=== PATIENT | female | born 1940 | race Caucasian/White ===

== ENCOUNTER 2020-05-04 18:02 | Inpatient (IN) ==
--- NOTE | 2020-05-04 19:03 | XRay Report ---
CLINICAL INFORMATION: Preop COMPARISON: None. TECHNIQUE: Portable FINDINGS: The heart size, mediastinum and pulmonary vessels are unremarkable. The lungs are clear. There are no effusions. The bones and soft tissues are within normal limits. IMPRESSION: Normal chest. Interpreted and Authenticated by: Dieter Blunt 05/04/20
--- NOTE | 2020-05-04 19:24 | Emergency Department Note ---
Trauma HPI General Chief Complaint: Trauma Stated Complaint: left hip pain Time Seen by Provider: 05/04/20 18:26 Source: patient Mode of arrival: ambulatory Limitations: no limitations History of Present Illness HPI Narrative: Narrative: 79-year-old female comes in for left hip fracture. She was initially seen at [facility] [place], [place]. The doctor in emergency department there, Dr. Crenshaw, discussed the situation with Dr. Silver, the orthopedist on-call who agreed to accept the patient in consult down here. The patient arrives with records including x-ray on CD Apparently the cause of her fall was tripping over a telephone cord. She did not hit her head or neck and did not lose consciousness I am reviewing the case to make sure we have all of her preoperative stuff in order and coordinate care Patient notes that she has a history of DVT diagnosed out in [place] after her right hip surgery in 2007. She was initially placed on a anticoagulant but is now on a [id number] thrombolytic nattokinase-she did not take that this evening-last taken yesterday evening. She has not had any new pulmonary emboli nor DVT. She also has hypothyroidism and high blood pressure. Covid testing to date has been negative Related Data Home Medications Medication Instructions Recorded Confirmed Kidney Bladder Herb Blend 2 cap PO TID 05/04/20 Lacto 51-Bifid 3-L.lact-S.ther 1 cap PO DAILY 05/04/20 05/04/20 [Daily Probiotic (10 Strains)] Nattokinase 100 mg PO DAILY 05/04/20 carica papaya [Papaya Enzyme] 1 tab PO TID 05/04/20 05/04/20 fluorometholone 1 drp OPHTHALMIC (EYE) Q2H 05/04/20 05/04/20 levothyroxine 75 mcg PO QDAY 05/04/20 05/04/20 Allergies Allergy/AdvReac Type Severity Reaction Status Date / Time adhesive Allergy Verified 05/04/20 18:08 aminophylline Allergy Verified 05/04/20 18:08 Hydralazine Allergy Verified 05/04/20 18:08 tramadol Allergy Verified 05/04/20 18:08 Review of Systems ROS ROS Narrative: Narrative: All systems ED: reviewed and negative except as stated. PFSH Narrative Patient History Narrative: Narrative: Medical/Surgical/Family History All Active Problems (Updated 05/04/20 @ 19:29 by Delfin Childress MD) Femoral neck fracture (Acute) Chronic anticoagulation (Acute) Hypothyroidism (Acute) Medical History (Updated 05/04/20 @ 19:29 by Delfin Childress MD) History of DVT (deep vein thrombosis) (Acute) Surgical History (Updated 05/04/20 @ 19:01 by Delfin Childress MD) History of hip surgery (Acute) Family History (Updated 05/04/20 @ 19:20 by Delfin Childress MD) Mother Alzheimer's disease Hypertension Father CVA (cerebral vascular accident) Social History Smoking Status: Never smoker Exam Narrative Narrative: Narrative: No acute distress resting comfortably able answer questions appropriately. Normocephalic atraumatic. Conjunctive are clear sclerae white nonicteric. No nasal discharge or congestion. Oropharynx pink and moist. Neck is supple without lymphadenopathy or thyromegaly. Heart is regular rate and rhythm no murmur appreciated. Lungs are clear to auscultation bilaterally without wheezes rales rhonchi or respiratory distress. Abdomen is soft nontender nondistended. No peritoneal signs or guarding. Left hip is tender and she does not want to move it secondary to femoral fracture. No pedal edema. General Limitations: no limitations Course Vital Signs Vital signs: Vital Signs Temperature 97.0 F 05/04/20 18:03 Pulse Rate 72 05/04/20 18:03 Respiratory Rate 16 05/04/20 18:03 Blood Pressure 160/70 05/04/20 18:03 Pulse Oximetry (%) 95 05/04/20 18:03 Temperature 97.0 F 05/04/20 18:03 Pulse Rate 72 05/04/20 18:03 Respiratory Rate 16 05/04/20 18:03 Blood Pressure 160/70 05/04/20 18:03 Pulse Oximetry (%) 95 05/04/20 18:03 [facility] MDM Narrative Medical decision making narrative: Narrative: I discussed the case with Dr. Silver, orthopedist, who agreed to come in and see the patient. He advised me to get bleeding time if possible and further platelet in blood studies to make sure that we have a handle on the impact of the nattokinase. I also discussed case with Dr. Wilson, hospitalist who agreed to come see the patient and accept her for admission to the hospital in anticipation of surgery tomorrow morning. At this time the patient's blood pressure is 141/61 pulse of 70 oxygen is 95% on room air and she is afebrile Medical Records Medical records reviewed: Yes I reviewed the patient's medical records. Medical records narrative: Reviewed medical records from [facility]. CMP was unremarkable. Urinalysis showed moderate leukocytes with specific gravity 1.020 no bacteria. This was sent for culture. Comer was placed. CBC was normal without anemia or leukocytosis. Her medicine list shows mostly herbal supplements and includes L-arginine magnesium probiotic multivitamin and nattokinase as above Lab Data Lab results reviewed: Yes I reviewed the patient's lab results. Lab results narrative: Reviewed labs as above. Also ordered platelet function test INR and PTT because of the nattokinase Radiology Data Radiology results reviewed: Yes I reviewed the patient's radiology results. Radiology results narrative: Chest x-ray is unremarkable EKG Data EKG #1: EKG attestation: Yes I reviewed and interpreted this EKG. and Yes There are no EKG findings of acute coronary syndrome EKG results narrative: Concern for right bundle branch block versus interventricular conduction delay but otherwise sinus rhythm Discharge Plan Patient/Caregiver Discharge Instructions Pt seen by DEVELOPMENT ENGINEER/PA only: No Clinical Impression: Femoral neck fracture, Chronic anticoagulation Patient Disposition: Xfer As Inpt ([facility]) Condition: Fair Follow up with: Lynne Álvarez [Primary Care Provider] - Prescriptions: No Action fluorometholone 0.1 % Drops,Suspension 1 drp OPHTHALMIC (EYE) Q2H RF: 0 levothyroxine 75 mcg Capsule 75 mcg PO QDAY RF: 0 carica papaya [Papaya Enzyme] Tablet 1 tab PO TID RF: 0 Daily Probiotic (10 Strains) 4 billion cell Capsule 1 cap PO DAILY RF: 0 Kidney Bladder Herb Blend 2 cap PO TID RF: 0 Nattokinase 100 mg PO DAILY RF: 0
--- NOTE | 2020-05-04 19:31 | Internal Med History&Physical ---
HPI History of Present Illness Patient information: Note initiated : 05/04/20 at 7:31 pm Service Date, if different from initiated Date: [] Patient: Tami Bowles a 79 y/o F admitted on for left hip pain. Chief Complaint: Fall with left hip pain History of present illness: Ms. Bowles is a 79 year old F with a history of prior DVT/hypothyroidism who presents to the ER after she tripped on extension cord and fell sustaining injury to the left hip. She lives [place] [address] with her [place], she was in her baseline state of health. She denies losing consciousness. She was evaluated at [facility] ER with imaging consistent with left hip fracture. Orthopedic was consulted and requested transfer to [facility] for operative intervention. Initial work-up was essentially unremarkable with normal labs. Her blood pressure was around 180s during and received 1 dose of labetalol. At [facility] ER patient systolics range around 150. Hospital service was consulted for admission and to facilitate surgery in a.m. Case was discussed with orthopedics Dr. Alejandro Silver. Patient be kept n.p.o. after midnight At the time of my evaluation patient is alert and oriented. She was able to answer most of the question and endorse history as above. She denies lightheadedness or dizziness. Attributes to fall to accidentally tripping on extension cord. No recent hospitalization. No history of cardiac issues. No history of CVA Review of systems 10 point review system was performed and is negative except for ones discussed above PFSH PFSH All Active Problems (Updated 05/04/20 @ 19:29 by Delfin Childress MD) Femoral neck fracture (Acute) Chronic anticoagulation (Acute) Hypothyroidism (Acute) Medical History (Updated 05/04/20 @ 19:29 by Delfin Childress MD) History of DVT (deep vein thrombosis) (Acute) Surgical History (Updated 05/04/20 @ 19:01 by Delfin Cihldress MD) History of hip surgery (Acute) Family History (Updated 05/04/20 @ 19:20 by Delfin Childress MD) Mother Alzheimer's disease Hypertension Father CVA (cerebral vascular accident) Social History smoking status: Never smoker MEDS/ALLERGIES Home Medications and Allergies Home Medications Medication Instructions Recorded Confirmed Type Kidney Bladder Herb Blend 2 cap PO TID 05/04/20 05/04/20 History Lacto 51-Bifid 3-L.lact-S.ther 1 cap PO DAILY 05/04/20 05/04/20 History [Daily Probiotic (10 Strains)] Nattokinase 100 mg PO DAILY 05/04/20 05/04/20 History carboxymethylcellulose sodium 1 drp OPHTHALMIC (EYE) DAILY 05/04/20 05/04/20 History [Refresh Tears] carica papaya [Papaya Enzyme] 1 tab PO TID 05/04/20 05/04/20 History levothyroxine 75 mcg PO QDAY 05/04/20 05/04/20 History Allergies Allergy/AdvReac Type Severity Reaction Status Date / Time perfume Allergy Severe choking Verified 05/04/20 23:07 adhesive Allergy Verified 05/04/20 18:08 aminophylline Allergy Verified 05/04/20 18:08 Hydralazine Allergy Verified 05/04/20 18:08 tramadol Allergy Verified 05/04/20 18:08 EXAM Constitutional Vitals: Temp Pulse Resp BP Pulse Ox 97.0 F 70 16 141/61 95 05/04/20 18:03 05/04/20 19:01 05/04/20 18:03 05/04/20 19:01 05/04/20 19:01 Alert oriented minimal anxiety Head normocephalic Oral cavity moist No ear nose discharge Eye movement symmetrical Neck supple no lymphadenopathy S1-S2 occasionally irregular Nonlabored breathing Nondistended nontender abdomen Left hip shortened externally rotated, no cyanosis clubbing Skin no suspicious lesion Psych no hallucination Neuro normal higher function DATA Data Completed and Pending Labs: Labs from last 24 hours 05/04/20 19:00 POC PT Pending POC INR Pending A/P Narrative A/P Narrative: * Left hip fracture-she will undergo operative intervention in a.m. Currently on pain management/n.p.o. after midnight. * Preop risk evaluation-based on RCRI [place] [employer] risk stratification patient would be in the moderate to high risk category in light of her age however patient has a good functional baseline and does not have history of decompensated CHF/CVA/DC/IDDM or renal failure. There are no modifiable risk factors and she can proceed with surgery in a.m. Surgery and anesthesia specific risks will be addressed by individual care providers. * Hypothyroidism continue thyroxine * History of DVT-patient takes [id number] medication nattokinase. Last dose this morning. * Full code Plan * Inpatient admission * Pain management * Orthopedic intervention in a.m. * N.p.o. after midnight * Pre-existing medical condition management on home medications * DVT prophylaxis per orthopedics Time Spent With Patient Time: Total time spent is greater than 50% in coordination of care (as documented) at patient's floor/unit and/or counseling patient:
[2020-05-04 20:33] LABS: POC Pro Time 11.5 sec (11.9-14.5)
[2020-05-04 20:40] LABS: Partial Thromboplastin Time 20.4 sec (20.0-37.0)
[2020-05-04] MEDS ORDERED: MAGNESIUM SULFATE 2 GM/50 ML BAG IV PRN (21:39)
[2020-05-04] MEDS ORDERED: POTASSIUM CHLORIDE 20 MEQ PACKET PO PRN (21:39)
[2020-05-04] MEDS ORDERED: ONDANSETRON 4 MG ODT TABLET SL PRN (21:39)
[2020-05-04] MEDS ORDERED: POLYETHYLENE GLYCOL 3350 17 GM PACKET PO PRN (21:39)
[2020-05-04] MEDS ORDERED: ACETAMINOPHEN 650 MG/65 ML BAG IV PRN (21:39)
[2020-05-04] MEDS ORDERED: ONDANSETRON 4 MG/2 ML VIAL IV PRN (21:39)
[2020-05-04] MEDS ORDERED: HYDROmorphone 0.5 MG/0.5 ML SYRINGE IV PRN (21:39)
[2020-05-04] MEDS ORDERED: POTASSIUM CHLORIDE 40 MEQ in DEXTROSE 5% IN WATER 500 ML IV PRN (21:39)
[2020-05-04] MEDS ORDERED: BISACODYL 10 MG SUPP.RECT PR PRN (21:39)
[2020-05-04] MEDS ORDERED: ACETAMINOPHEN 325 MG TABLET PO PRN (21:39)
[2020-05-04] MEDS: 0.9 % SODIUM CHLORIDE 1,000 ML IV SCH (21:55)
[2020-05-04] MEDS: 0.9 % SODIUM CHLORIDE 10 ML SYRINGE IV SCH (21:56)
[2020-05-04] MEDS ORDERED: HYDROmorphone 0.5 MG/0.5 ML SYRINGE ONE (22:00)
[2020-05-04] MEDS: DOCUSATE SODIUM 100 MG CAPSULE PO SCH (22:50)
[2020-05-04] MEDS: HEPARIN 5,000 UNIT/ML VIAL SQ SCH (22:51)
[2020-05-04] MEDS: SENNOSIDES/DOCUSATE SODIUM 1 TAB TABLET PO SCH (22:51)
[2020-05-05] MEDS: 0.9 % SODIUM CHLORIDE 10 ML SYRINGE IV SCH ×3 (05:05→22:06)
[2020-05-05 06:47] LABS: Basophils # (Auto) 0.06 K/mcL (0.00-0.20); Basophils % (Auto) 0.7 % (0.0-2.0); Eosinophils % (Auto) 2.2 % (0.0-7.0); Hematocrit 42.1 % (36.0-48.0); Hemoglobin 13.6 g/dL (12.0-15.0); Lymphocytes # (Auto) 1.74 K/mcL (1.50-4.80); Lymphocytes % (Auto) 19.2 % (15.0-49.0); Mean Cell Volume 98.1 fL (80.0-100.0); Mean Corpuscular HGB Conc 32.3 g/dL (31.0-36.0); Mean Platelet Volume 11.5 fL (7.4-10.4); Monocytes # (Auto) 0.87 K/mcL (0.10-0.90); Monocytes % (Auto) 9.6 % (1.0-12.0); Neutrophils % (Auto) 68.3 % (38.0-78.0); Platelet Count 192 K/mcL (140-440); RBC 4.29 M/mcL (4.00-5.20); WBC 9.1 K/mcL (4.5-11.0)
[2020-05-05 07:16] LABS: ALT/SGPT 17 U/L (<40); AST/SGOT 23 U/L (<32); Albumin 3.7 gm/dL (3.2-5.2); Albumin/Globulin Ratio 1.2 (1.0-2.3); Alkaline Phosphatase 76 U/L (39-117); Bilirubin,Direct < 0.2 mg/dL (<0.3); Bilirubin,Total 0.6 mg/dL (0.1-1.0); Blood Urea Nitrogen 12 mg/dL (8-23); Calcium 8.9 mg/dL (8.6-10.4); Carbon Dioxide 23 mmol/L (22-30); Chloride 107 mmol/L (96-108); Glomerular Filtration Rate 69; Glucose 105 mg/dL (70-105); Lactate Dehydrogenase 164 U/L (135-225); Phosphorous 3.2 mg/dL (2.5-4.5); Triglycerides 109 mg/dL (<150); Uric Acid 5.8 mg/dL (2.5-8.0)
--- NOTE | 2020-05-05 07:25 | Consultation ---
DATE OF CONSULTATION: 05/04/2020 REASON FOR CONSULTATION: Left femoral neck fracture. DATE OF CONSULTATION: 05/04/2020. CONSULTING PROVIDERS: Dr. Childress, ER physician at [facility]. HISTORY OF PRESENT ILLNESS: The patient is an 79-year-old female who earlier this afternoon at home was backing when she tripped over a cord and fell on the floor, resulting in immediate pain about the left hip. She was unable to bear weight and ambulate. She was then subsequently transferred to [facility] and subsequently [facility] was contacted transferred here. Given the fracture, Orthopedics was also consulted for definitive treatment. On presentation, she only complains of left hip pain. She does not endorse any numbness or tingling to the extremity or any upper extremity pain. PAST MEDICAL HISTORY: She has hypertension, hypothyroidism, hyperlipidemia, insomnia, dry eyes, and sensorineural hearing loss. Ureteral cancer and reflux. PAST SURGICAL HISTORY: She had a right hip fracture which she reports is 2007. This is documented in 2011. She needed an operative fixation at that time with subsequent revision to a total hip arthroplasty more recently in the past 3 years. She did develop a blood clot after her index procedure and was placed on more recently a herbal or more natural remedy of Nattokinase. She had a mammogram and a hysterectomy. ALLERGIES: ADHESIVES, AMLODIPINE, HYDRALAZINE, TRAMADOL. SOCIAL HISTORY: She resides with her just outside of [place]. She does not use tobacco products. REVIEW OF SYSTEMS: She has bilateral dry eyes as well as hearing loss as noted above. Otherwise, 10-point review of systems negative. PHYSICAL EXAMINATION: VITAL SIGNS: She is afebrile. Her heart rate is 68, blood pressure 137/93, and satting 100% on room air. GENERAL: She is alert and oriented, interactive, and appropriate. EXTREMITIES: Examination of bilateral lower extremities are atraumatic as well as torso and right lower extremity with a posterolateral healed incision. She has no deformity noted about the extremity. Left lower extremity: She has skin intact throughout. She has no joint effusion about the knee itself. Her foot is warm and well perfused. Sensation intact to light touch. She can plantarflex, dorsiflex. Her leg does not appear significantly shortened or externally rotated but any motion of the hip is painful. LABORATORY DATA: She has labs from outside facility with a glucose of 110, creatinine 0.7. White count 8.5, H and H are 15.3 and 46.6 with platelets 199. Her UA has moderate leukocytes, however, nitrite negative. No bacteria visualized. IMAGING: She has plain radiographs from outside hospital reviewed, which demonstrates a midcervical femoral neck fracture, valgus impacted on the lateral appears to be near anatomic. On AP, there is a bit of a break on the medial calcar, however, the lines line up. ASSESSMENT AND PLAN: The patient is an 79-year-old female with a left valgus impacted femoral neck fracture. I discussed the diagnosis with her as well as the treatment options at length. Discussed a hemiarthroplasty versus cannulated screws for operative fixation. Discussed the risks of cannulated screws with 70% failure rate require revision to either monika or total. Also, discussed the risk of monika which is progressive arthritis which she already has some arthritis of the hip. With doing a total, she does have a high risk of a hip dislocation. My recommendation would be cannulated screws for operative fixation as I think this would provide for best functional outcome. She may have a limp, however, overall, I think she would be happy with this treatment option. She does understand the risks associated with this. She does want to proceed in this fashion. She does understand that she is on a nontraditional anticoagulant, which does not have any clear defined duration to be off prior to surgery, however, she has been off it for the whole day today as she has not taken it today and tomorrow will be 2 days, which is 48 hours and discussed there is a small chance for increased bleeding, which she does understand as well. She will be admitted by the hospitalist and plan for operative fixation with cannulated screws tomorrow around noon. CHARY:mali Job ID: [id number] Doc ID: [id number] MD BULMARO Preciado
[2020-05-05] MEDS: LEVOTHYROXINE 75 MCG TABLET PO SCH (07:53)
[2020-05-05] MEDS ORDERED: IPRATROPIUM/ALBUTEROL 3 ML AMPUL.NEB NEB PRN ×2 (08:00→14:12)
[2020-05-05] MEDS ORDERED: SCOPOLAMINE 1 PATCH PATCH TOPICAL PRN (08:00)
--- NOTE | 2020-05-05 08:12 | Internal Med Progress Note ---
SUBJECTIVE Subjective Patient information: Note initiated : 05/05/20 at 8:10 am Service Date, if different from initiated Date: [] Patient: Tami Bowles 79 y/o F admitted on 05/04/20 for left hip pain. Chief Complaint: [] Interval history: Ms. Bowles is a 79 year old F with a history of prior DVT/hypothyroidism who presents to the ER after she tripped on extension cord and fell sustaining injury to the left hip. She lives [place] [address] [place] with her [place], she was in her baseline state of health. She denies losing consciousness. She was evaluated at [facility] ER with imaging consistent with left hip fracture. Orthopedic was consulted and requested transfer to [facility] for operative intervention. Initial work-up was essentially unremarkable with normal labs. Her blood pressure was around 180s during and received 1 dose of labetalol. At [facility] ER patient systolics range around 150. Hospital service was consulted for admission and to facilitate surgery in a.m. Case was discussed with orthopedics Dr. Alejandro Silver. Patient be kept n.p.o. after midnight At the time of my evaluation patient is alert and oriented. She was able to answer most of the question and endorse history as above. She denies lightheadedness or dizziness. Attributes to fall to accidentally tripping on extension cord. No recent hospitalization. No history of cardiac issues. No history of CVA 05/05-patient doing well. Great surgical intervention today. Pain overnight been controlled. Stable hemodynamics and labs. Will review postop. Constitutional Vitals: Vital Signs Temp Pulse Resp BP Pulse Ox 98.0 F 65 18 125/68 94 05/05/20 08:00 05/05/20 08:00 05/05/20 08:00 05/05/20 08:00 05/05/20 08:00 Period Temp Pulse Resp BP Sys/Reynolds Pulse Ox Last 24 Hr 97.0 F-98.3 F 65-74 16-18 117-160/53-93 92-100 Intake and Output 05/04/20 05/05/20 05/05/20 21:59 05:59 13:59 Intake Total 350 Output Total 500 Balance -150 Weight 68.039 kg 69.116 kg alert oriented Resting comfortably in bed No family at bedside Nonlabored breathing Intake & Output: Intake & Output 05/04/20 05/05/20 05/05/20 21:59 05:59 13:59 Intake Total 350 Output Total 500 Balance -150 Weight 68.039 kg 69.116 kg Intake: Oral 350 Output: Urine Catheter Amount 500 Other: Urine Appearance Clear Uretheral (Comer) Clear Urine Color Straw Uretheral (Comer) Bright Yellow OBJ DATA Labs CBC & Chem 7: 05/05/20 05:14 05/05/20 05:14 Labs: Abnormal Lab Results 05/05/20 05/04/20 05:14 19:00 MPV 11.5 H POC PT 11.5 L Meds: Medications Acetaminophen (Tylenol) 650 mg PO Q4-6HP PRN; Protocol PRN Reason: Per Pain Protocol/Fever > 101 Albuterol/Ipratropium (Duoneb) 3 ml NEB ONCE PRN PRN Reason: Shortness Of Breath Stop: 05/05/20 09:00 Bisacodyl (Dulcolax) 10 mg PA Q2-3DAYS PRN PRN Reason: Constipation Docusate Sodium (Colace) 100 mg PO BID [facility] Last Admin: 05/04/20 22:50 Dose: Not Given Documented by: Heparin Sodium (Porcine) (Heparin) 5,000 unit SQ Q12 [facility] Last Admin: 05/04/20 22:51 Dose: 5,000 unit Documented by: Hydromorphone HCl (Dilaudid) 0.25 - 0.5 mg IV Q4HP PRN; Protocol PRN Reason: Per Pain Protocol Last Admin: 05/04/20 21:54 Dose: 0.25 mg Documented by: Potassium Chloride 40 meq/ (Dextrose) 520 mls @ 130 mls/hr IV UD PRN PRN Reason: K+ = or < 3.5 Acetaminophen (Ofirmev) 650 mg in 65 mls @ 130 mls/hr IV Q6HP PRN; Protocol PRN Reason: Per Pain Protocol/Fever > 101 Magnesium Sulfate (Magnesium Sulfate) 2 gm in 50 mls @ 50 mls/hr IV UD PRN PRN Reason: MG = or < 1.7 Sodium Chloride (Sodium Chloride 0.9%) 1,000 mls @ 50 mls/hr IV .Q20H [facility] Stop: 05/07/20 09:38 Last Admin: 05/04/20 21:55 Dose: 50 mls/hr Documented by: Iron Carb/Multivit/Caroline/Folic Acid (Multivitamin W/Minerals) 1 tab PO DAILY [facility] Levothyroxine Sodium (Synthroid) 75 mcg PO QAMAC [facility] Last Admin: 05/05/20 07:53 Dose: Not Given Documented by: Melatonin (Melatonin 3mg Tablet) 3 mg PO HSP PRN PRN Reason: Insomnia Ondansetron HCl (Zofran Odt) 4 mg SL Q4-6HP PRN; Protocol PRN Reason: Nausea And Vomiting Ondansetron HCl (Zofran) 4 mg IV Q4-6HP PRN; Protocol PRN Reason: Nausea And Vomiting Carica Papaya [ (Papaya Enzyme] Tab) 1 dose PO TID [facility] Polyethylene Glycol (Miralax) 17 gm PO DAILYP PRN PRN Reason: Constipation Potassium Chloride (Klor-Con) 40 meq PO DAILYP PRN PRN Reason: K+ < 3.5 Scopolamine (Transderm-Scop) 1 patch TOPICAL PREOP PRN PRN Reason: Nausea And Vomiting Stop: 05/05/20 15:00 Senna/Docusate Sodium (Senna Plus Tablet) 1 tab PO HS [facility] Last Admin: 05/04/20 22:51 Dose: 1 tab Documented by: Sodium Chloride (Saline Flush) 10 ml IV Q8 [facility] Last Admin: 05/05/20 05:05 Dose: Not Given Documented by: A/P Narrative A/P Narrative: * Left hip fracture-scheduled for operative intervention today. Currently on pain management/n.p.o. for surgery * Preop risk evaluation-based on RCRI [place] [employer] risk stratification patient would be in the moderate to high risk category in light of her age however patient has a good functional baseline and does not have history of decompensated CHF/CVA/PR/IDDM or renal failure. There are no modifiable risk factors and she can proceed with surgery in a.m. Surgery and anesthesia specific risks will be addressed by individual care providers. * Hypothyroidism continue thyroxine * History of DVT-patient takes [id number] medication nattokinase. Last dose 03/04 a.m. * Full code Plan * Continue pain management * Postop care/DVT prophylaxis per orthopedics * Pre-existing medical condition management on home medications * Nutrition support/discharge planning Time Spent With Patient Time: Total time spent is greater than 50% in coordination of care (as documented) at patient's floor/unit and/or counseling patient: QUALITY VTE Deep Vein Thrombosis/Pulmonary Embolism Present on Admission: No
[2020-05-05] MEDS: DOCUSATE SODIUM 100 MG CAPSULE PO SCH ×2 (09:09→22:06)
[2020-05-05] MEDS: [UNRECOGNIZED DRUG - OTHER] PO SCH ×3 (09:09→22:06)
[2020-05-05] MEDS: HEPARIN 5,000 UNIT/ML VIAL SQ SCH (09:09)
[2020-05-05] MEDS: MULTIVIT,THER IRON,CA,FA & MIN 1 TABLET PO SCH (11:39)
--- NOTE | 2020-05-05 12:52 | Internal Med Progress Note ---
SUBJECTIVE Subjective Patient information: Note initiated : 05/05/20 at 12:48 pm Service Date, if different from initiated Date: [] Patient: Tami oBwles 79 y/o F admitted on 05/04/20 for left hip pain. Chief Complaint: [] Interval history: Ms. Bowles is a 79 year old F with a history of prior DVT/hypothyroidism who presents to the ER after she tripped on extension cord and fell sustaining injury to the left hip. She lives [place] [address] [place] [address] with her [place], she was in her baseline state of health. She denies losing consciousness. She was evaluated at [facility] ER with imaging consistent with left hip fracture. Orthopedic was consulted and requested transfer to [facility] for operative intervention. Initial work-up was essentially unremarkable with normal labs. Her blood pressure was around 180s during and received 1 dose of labetalol. At [facility] ER patient systolics range around 150. Hospital service was consulted for admission and to facilitate surgery in a.m. Case was discussed with orthopedics Dr. Alejandro Silver. Patient be kept n.p.o. after midnight At the time of my evaluation patient is alert and oriented. She was able to answer most of the question and endorse history as above. She denies lightheadedness or dizziness. Attributes to fall to accidentally tripping on extension cord. No recent hospitalization. No history of cardiac issues. No history of CVA 05/05-patient doing well. Great surgical intervention today. Pain overnight been controlled. Stable hemodynamics and labs. Will review postop. Constitutional Vitals: Vital Signs Temp Pulse Resp BP Pulse Ox 98.0 F 65 18 125/68 94 05/05/20 08:00 05/05/20 08:30 05/05/20 08:30 05/05/20 08:00 05/05/20 08:30 Period Temp Pulse Resp BP Sys/Reynolds Pulse Ox Last 24 Hr 97.0 F-98.3 F 65-74 16-18 117-160/53-93 92-100 Intake and Output 05/04/20 05/05/20 05/05/20 21:59 05:59 13:59 Intake Total 350 Output Total 500 350 Balance -150 -350 Weight 68.039 kg 69.116 kg Intake & Output: Intake & Output 05/04/20 05/05/20 05/05/20 21:59 05:59 13:59 Intake Total 350 Output Total 500 350 Balance -150 -350 Weight 68.039 kg 69.116 kg Intake: Oral 350 Output: Urine Catheter Amount 500 350 Other: Urine Appearance Clear Clear Uretheral (Comer) Clear Clear Urine Color Straw Straw Uretheral (Comer) Bright Yellow Bright Yellow Exam: General: Alert, Awake, No acute Distress Eyes/N/T: EOMI, Head/Neck: neck supple, CV: RRR, No murmurs, Pulm: Clear b/l, no wheezing/rhonchi/rales Abd: soft, nontender, +BS x4 Ext: no clubbing/cyanosis/edema Neuro: Alert, no focal deficits, moves all extremities, Skin: warm/dry OBJ DATA Labs CBC & Chem 7: 05/06/20 05:26 05/05/20 05:14 Labs: Abnormal Lab Results 05/05/20 05/04/20 05:14 19:00 MPV 11.5 H POC PT 11.5 L Meds: Medications Acetaminophen (Tylenol) 650 mg PO Q4-6HP PRN; Protocol PRN Reason: Per Pain Protocol/Fever > 101 Bisacodyl (Dulcolax) 10 mg [place] Q2-3DAYS PRN PRN Reason: Constipation Docusate Sodium (Colace) 100 mg PO BID [facility] Last Admin: 05/05/20 09:09 Dose: Not Given Documented by: Heparin Sodium (Porcine) (Heparin) 5,000 unit SQ Q12 [facility] Last Admin: 05/05/20 09:09 Dose: Not Given Documented by: Hydromorphone HCl (Dilaudid) 0.25 - 0.5 mg IV Q4HP PRN; Protocol PRN Reason: Per Pain Protocol Last Admin: 05/04/20 21:54 Dose: 0.25 mg Documented by: Potassium Chloride 40 meq/ (Dextrose) 520 mls @ 130 mls/hr IV UD PRN PRN Reason: K+ = or < 3.5 Acetaminophen (Ofirmev) 650 mg in 65 mls @ 130 mls/hr IV Q6HP PRN; Protocol PRN Reason: Per Pain Protocol/Fever > 101 Magnesium Sulfate (Magnesium Sulfate) 2 gm in 50 mls @ 50 mls/hr IV UD PRN PRN Reason: MG = or < 1.7 Sodium Chloride (Sodium Chloride 0.9%) 1,000 mls @ 50 mls/hr IV .Q20H [facility] Stop: 05/07/20 09:38 Last Admin: 05/04/20 21:55 Dose: 50 mls/hr Documented by: Iron Carb/Multivit/[employer] Apprentice Arc/Folic Acid (Multivitamin W/Minerals) 1 tab PO DAILY [facility] Last Admin: 05/05/20 11:39 Dose: Not Given Documented by: Levothyroxine Sodium (Synthroid) 75 mcg PO QAMAC [facility] Last Admin: 05/05/20 07:53 Dose: Not Given Documented by: Melatonin (Melatonin 3mg Tablet) 3 mg PO HSP PRN PRN Reason: Insomnia Ondansetron HCl (Zofran Odt) 4 mg SL Q4-6HP PRN; Protocol PRN Reason: Nausea And Vomiting Ondansetron HCl (Zofran) 4 mg IV Q4-6HP PRN; Protocol PRN Reason: Nausea And Vomiting Carica Papaya [ (Papaya Enzyme] Tab) 1 dose PO TID [facility] Last Admin: 05/05/20 09:09 Dose: Not Given Documented by: Polyethylene Glycol (Miralax) 17 gm PO DAILYP PRN PRN Reason: Constipation Potassium Chloride (Klor-Con) 40 meq PO DAILYP PRN PRN Reason: K+ < 3.5 Scopolamine (Transderm-Scop) 1 patch TOPICAL PREOP PRN PRN Reason: Nausea And Vomiting Stop: 05/05/20 15:00 Senna/Docusate Sodium (Senna Plus Tablet) 1 tab PO HS [facility] Last Admin: 05/04/20 22:51 Dose: 1 tab Documented by: Sodium Chloride (Saline Flush) 10 ml IV Q8 [facility] Last Admin: 05/05/20 05:05 Dose: Not Given Documented by: A/P Narrative A/P Narrative: A: *Left hip fracture: s/p ORIF 05/05 -Currently on pain management per surgery *Preop risk evaluation-based on RCRI [place] [employer] risk stratification patient would be in the moderate to high risk category in light of her age however patient has a good functional baseline and does not have history of decompensated CHF/CVA/[place]/IDDM or renal failure. There are no modifiable risk factors and she can proceed with surgery in a.m. Surgery and anesthesia specific risks will be addressed by individual care providers. *Hypothyroidism continue thyroxine *h/o DVT: patient takes qrpi-vzw-nbigodl medication nattokinase. Plan: -Continue pain management -Postop care/DVT prophylaxis per orthopedics -Pre-existing medical condition management on home medications -Nutrition support/discharge planning -ppx: post-op per ortho Apixaban Full code Time Spent With Patient Time: Total time spent is greater than 50% in coordination of care (as docum ented) at patient's floor/unit and/or counseling patient: QUALITY VTE Deep Vein Thrombosis/Pulmonary Embolism Present on Admission: No
[2020-05-05] MEDS ORDERED: ceFAZolin 2 GM in DEXTROSE 5% IN WATER 50 ML IV SCH (13:00)
[2020-05-05] MEDS ORDERED: KETAMINE HCL 50 MG/ML ML ONE (13:05)
[2020-05-05] MEDS ORDERED: DEXAMETHASONE 10 MG/ML VIAL ONE (13:05)
[2020-05-05] MEDS ORDERED: ONDANSETRON 4 MG/2 ML VIAL ONE (13:05)
[2020-05-05] MEDS ORDERED: ePHEDrine 50 MG/ML AMPUL IV ONE (13:05)
[2020-05-05] MEDS ORDERED: PROPOFOL 200 MG/20 ML VIAL IV ONE (13:05)
[2020-05-05] MEDS ORDERED: LIDOCAINE HCL/PF 100 MG/5 ML SYRINGE IV ONE (13:05)
[2020-05-05] MEDS ORDERED: BENZOCAINE/MENTHOL 1 LOZENGE PO PRN (14:12)
[2020-05-05] MEDS ORDERED: PROMETHAZINE 25 MG/ML VIAL IV PRN (14:12)
[2020-05-05] MEDS ORDERED: LACTATED RINGERS 250 ML IV PRN (14:12)
[2020-05-05] MEDS ORDERED: ONDANSETRON 4 MG/2 ML VIAL IV PRN (14:12)
[2020-05-05] MEDS ORDERED: ACETAMINOPHEN 1,000 MG/100 ML BAG IV ONE (14:12)
[2020-05-05] MEDS ORDERED: diphenhydrAMINE 50 MG/ML VIAL IV PRN (14:12)
[2020-05-05] MEDS ORDERED: MEPERIDINE 25 MG/ML SYRINGE IV PRN (14:12)
[2020-05-05] MEDS ORDERED: NALOXONE HCL 0.4 MG/ML VIAL IV PRN (14:12)
[2020-05-05] MEDS ORDERED: LACTATED RINGERS 1,000 ML IV SCH (14:15)
--- NOTE | 2020-05-05 14:21 | Brief Operative Note ---
Brief Operative Note Date of procedure: 05/05/20 Pre-op diagnosis: left valgus impacted femoral neck fracture Post-op diagnosis: same Procedure: operative fixation of left femoral neck fracture with 3 screws Grafts/Implants: Yes Anesthesia: GETA Findings: valgus impacted femoral neck fracture Complications: none Surgeon: Edelmira Silver [employer]igar Making Machine Supervisor: Ryan Peterson Estimated blood loss (cc): 20 Tourniquet Time (Minutes): 0 Specimens Removed/Pathology: none sent Condition: stable Disposition: PACU
[2020-05-05] MEDS: fentaNYL 100 MCG/2 ML VIAL IV PRN ×2 (14:50→14:54)
[2020-05-05] MEDS ORDERED: oxyCODONE HCL 5 MG TABLET PO PRN (14:55)
[2020-05-05] MEDS ORDERED: METHOCARBAMOL 750 MG TABLET PO PRN (15:00)
--- NOTE | 2020-05-05 15:02 | Operative Note ---
DATE OF OPERATION: 05/05/2020 PREOPERATIVE DIAGNOSIS: Left valgus-impacted femoral neck fracture. POSTOPERATIVE DIAGNOSIS: Left valgus-impacted femoral neck fracture. PROCEDURE: Operative fixation with internal fixation using 8.0 cannulated titanium screws. SURGEON: Edelmira Silver M.D. REGISTERED APPRAISER: Ryan Peterson PA-C. The PA's assistance was required for the safe and efficient completion of the entire case. This provider's expertise and technical skill were required throughout the case. The PA assisted with preoperative coordination, intraoperative retraction, wound closure, dressing and splint application, as well as postoperative documentation and care coordination. ANESTHESIA: General. IV FLUIDS: 1 liter lactated Ringer's. ESTIMATED BLOOD LOSS: Minimal. TOURNIQUET TIME: Not applicable. ANTIBIOTICS: 2 grams Ancef. IMPLANTS: Three 8.0 titanium short-thread partially-cannulated screws from [employer]. INTRAOPERATIVE COMPLICATIONS: None apparent. PATHOLOGY/LAB: None. INDICATIONS FOR PROCEDURE: The patient is an 79-year-old female who sustained a ground level fall yesterday at home, mechanical in nature, where she sustained a valgus-impacted femoral neck fracture. She was subsequently transferred to [facility] for further evaluation and treatment. I discussed the injury with her, as well as the treatment options, including hemiarthroplasty versus an operative fixation with cannulated screws. I discussed risks and benefits of each She wished to proceed with cannulated screw fixation. She has had a right femoral neck fracture as well, which was converted to a total several years ago, which figured into her decision making as well. DESCRIPTION OF PROCEDURE: Patient was met in preoperative holding area where site was verified and marked with the patient's input. She was then taken back to the operating room where she underwent successful anesthesia via LMA. She was placed on the [place] table with a padded perineal padded. Her left extremity was then prepped and draped in the usual sterile fashion with ChloraPrep. Surgical timeout was performed to verify patient identity, correct procedure being performed, and correct extremity being operated on. Everybody was in agreement. Under large fluoroscopy, AP and lateral radiographs were obtained prior to prep and drape to ensure reduction was maintained with the valgus-impacted pattern with the medial neck reduced and on lateral are without angulation. At this point, utilizing there 3-point guide, I placed three guidewires in an inverted triangle fashion with the inferior posterior being placed first and the second one posterior anterior and then anterior superior. These were sequentially measured, drilled and screws placed - one at a time. Multiple radiographs were then taken in AP and lateral, to ensure no screw prominence to the subchondral bone and overall reduction was maintained. At this point, the wound was copiously irrigated. The subcutaneous tissue was closed with 3-0 Vicryl and skin was closed with chaparrita. The leg was then cleaned and dried. Xeroform, fluffs, and Medipore tape to secure dressing was applied. The patient was awoken from anesthesia and transferred to the PACU in stable condition. POSTOPERATIVE PLAN: The patient will be admitted back to the floor for postoperative recovery and subsequently to determine disposition. DLJohn:je Job ID: [id number] Doc ID: [id number] Edelmira Silver MD MTDD
[2020-05-05] MEDS ORDERED: ACETAMINOPHEN 325 MG TABLET PO SCH (15:15)
--- NOTE | 2020-05-05 16:00 | XRay Report ---
HISTORY: Postop fixation of the left hip fracture FINDINGS: Three threaded pins have been inserted through the greater trochanter, across the left femoral neck into the head. There is an acute fracture of the subcapital portion of the left femoral neck. There is good alignment with no angulation or displacement. The hip joint is normal in width and alignment. Patient has a well-positioned right total hip prosthesis. IMPRESSION: Good alignment following open reduction internal fixation of the fractured proximal left femur Interpreted and Authenticated by: Lv Amezcua 05/05/20
[2020-05-05] MEDS: 0.9 % SODIUM CHLORIDE 1,000 ML IV SCH ×2 (16:20→16:25)
--- NOTE | 2020-05-05 17:05 | XRay Report ---
HISTORY: FINDINGS: IMPRESSION: 1.6 minutes of fluoroscopy time was used. Interpreted and Authenticated by: Lv Amezcua 05/05/20
[2020-05-05] MEDS: APIXABAN 5 MG TABLET PO SCH (22:02)
[2020-05-05] MEDS: MELATONIN 3 MG TABLET PO PRN (22:05)
[2020-05-05] MEDS: SENNOSIDES/DOCUSATE SODIUM 1 TAB TABLET PO SCH (22:06)
[2020-05-05] MEDS: ceFAZolin 1 GM VIAL IV SCH (22:06)
[2020-05-05] MEDS: ACETAMINOPHEN 500 MG TABLET PO SCH (22:07)
[2020-05-06] MEDS: ceFAZolin 1 GM VIAL IV SCH (04:42)
[2020-05-06] MEDS: SENNOSIDES/DOCUSATE SODIUM 1 TAB TABLET PO SCH ×2 (04:42→20:44)
[2020-05-06] MEDS: DOCUSATE SODIUM 100 MG CAPSULE PO SCH ×3 (04:43→20:44)
[2020-05-06] MEDS: 0.9 % SODIUM CHLORIDE 10 ML SYRINGE IV SCH ×3 (04:53→20:41)
[2020-05-06] MEDS: 0.9 % SODIUM CHLORIDE 1,000 ML IV SCH (04:53)
[2020-05-06] MEDS: ACETAMINOPHEN 500 MG TABLET PO SCH ×4 (04:54→23:35)
--- NOTE | 2020-05-06 06:40 | Orthopedic Progress Note ---
SUBJECTIVE Subjective Patient information: Note initiated : 05/06/20 at 6:36 am Service Date, if different from initiated Date: [] Patient: Tami Bowles 79 y/o F admitted on 05/04/20 for left hip pain. Chief Complaint: [No new complaints this AM. Pain is significantly improved. Not worked with PT yet. No chest pain/shortness of breath.] Constitutional Vitals: Vital Signs Temp Pulse Resp BP Pulse Ox 98.4 F 61 12 116/60 95 05/06/20 03:21 05/06/20 03:21 05/06/20 03:21 05/06/20 03:21 05/06/20 03:21 Period Temp Pulse Resp BP Sys/Reynolds Pulse Ox Last 24 Hr 97 F-98.4 F 59-80 9-18 116-179/54-86 94-100 Intake and Output 05/05/20 05/06/20 05/06/20 21:59 05:59 13:59 Intake Total 1300 1236 Output Total 550 1000 Balance 750 236 Weight 165 lb 3.2 oz Intake & Output: Intake & Output 05/05/20 05/06/20 05/06/20 21:59 05:59 13:59 Intake Total 1300 1236 Output Total 550 1000 Balance 750 236 Weight 165 lb 3.2 oz Intake: IV 150 936 Sodium Chloride 0.9% 1,000 ml @ 936 75 mls/hr IV .[id number] [facility] Rx#: [id number] Ancef 2 gm In Dextrose 5% in 50 Water 50 ml @ 100 mls/hr IV PREOP [facility] Rx#:[id number] Oral 300 IV - Manual Only 1150 Output: Urine Catheter Amount 300 1000 Estimated Blood Loss 250 Other: Urine Appearance Clear Clear Uretheral (Roberts) Clear Urine Color Straw Dark Yellow Uretheral (Roberts) Bright Yellow Additional findings Additional findings: General: awake, alert and oriented Left hip: dressing is clean dry and intact. No echymosis/bruising noted. foot is warm well perfused - foot pumps and roberts in place. OBJ DATA Labs CBC & Chem 7: 05/05/20 05:14 05/05/20 05:14 Labs: Abnormal Lab Results 05/05/20 05/04/20 05:14 19:00 MPV 11.5 H POC PT 11.5 L Meds: Medications Acetaminophen (Tylenol) 1,000 mg PO Q8 [facility]; Protocol Last Admin: 05/06/20 04:54 Dose: Not Given Documented by: Apixaban (Eliquis) 2.5 mg PO BID [facility] Last Admin: 05/05/20 22:02 Dose: 2.5 mg Documented by: Bisacodyl (Dulcolax) 10 mg [place] Q2-3DAYS PRN PRN Reason: Constipation Docusate Sodium (Colace) 100 mg PO BID [facility] Last Admin: 05/06/20 04:43 Dose: 100 mg Documented by: Potassium Chloride 40 meq/ (Dextrose) 520 mls @ 130 mls/hr IV UD PRN PRN Reason: K+ = or < 3.5 Acetaminophen (Ofirmev) 650 mg in 65 mls @ 130 mls/hr IV Q6HP PRN; Protocol PRN Reason: Per Pain Protocol/Fever > 101 Magnesium Sulfate (Magnesium Sulfate) 2 gm in 50 mls @ 50 mls/hr IV UD PRN PRN Reason: MG = or < 1.7 Iron Carb/Multivit/[place]/Folic Acid (Multivitamin W/Minerals) 1 tab PO DAILY [facility] Last Admin: 05/05/20 11:39 Dose: Not Given Documented by: Levothyroxine Sodium (Synthroid) 75 mcg PO QAMAC [facility] Last Admin: 05/05/20 07:53 Dose: Not Given Documented by: Melatonin (Melatonin 3mg Tablet) 3 mg PO HSP PRN PRN Reason: Insomnia Last Admin: 05/05/20 22:05 Dose: 3 mg Documented by: Methocarbamol (Robaxin) 500 mg PO Q6HP PRN PRN Reason: Muscle Spasm Ondansetron HCl (Zofran Odt) 4 mg SL Q4-6HP PRN; Protocol PRN Reason: Nausea And Vomiting Ondansetron HCl (Zofran) 4 mg IV Q4-6HP PRN; Protocol PRN Reason: Nausea And Vomiting Oxycodone HCl (Roxicodone) 0 mg PO Q4HP PRN; Protocol PRN Reason: Per Pain Protocol Carica Papaya [ (Papaya Enzyme] Tab) 1 dose PO TID [facility] Last Admin: 05/05/20 22:06 Dose: Not Given Documented by: Polyethylene Glycol (Miralax) 17 gm PO DAILYP PRN PRN Reason: Constipation Potassium Chloride (Klor-Con) 40 meq PO DAILYP PRN PRN Reason: K+ < 3.5 Senna/Docusate Sodium (Senna Plus Tablet) 1 tab PO HS [facility] Last Admin: 05/06/20 04:42 Dose: 1 tab Documented by: Sodium Chloride (Saline Flush) 10 ml IV Q8 [facility] Last Admin: 05/06/20 04:53 Dose: 10 ml Documented by: A/P Assessment and plan (1) Femoral neck fracture: Status: Acute Comment: POD 1 s/p operative fixation with 3 screws. - pt/ot today with protected weight bearing to left lower extremity to 25% for first 3-4 weeks - oral pain medications - d/c roberts this AM - regular diet - h/h pending this AM, but vitals stable - prophy: eliquis, IS, foot pumps, mobilization - Disposition: pending Qualifiers: Encounter type: initial encounter Fracture type: closed Laterality: left Qualified Code(s): S72.002A - Fracture of unspecified part of neck of left femur, initial encounter for closed fracture Time Spent With Patient Time: Total time spent is greater than 50% in coordination of care (as documented) at patient's floor/unit and/or counseling patient:
[2020-05-06 06:58] LABS: Basophils # (Auto) 0.05 K/mcL (0.00-0.20); Basophils % (Auto) 0.4 % (0.0-2.0); Eosinophils # (Auto) 0.01 K/mcL (0.00-0.70); Eosinophils % (Auto) 0.1 % (0.0-7.0); Hematocrit 41.5 % (36.0-48.0); Hemoglobin 13.7 g/dL (12.0-15.0); Lymphocytes # (Auto) 1.42 K/mcL (1.50-4.80); Lymphocytes % (Auto) 11.4 % (15.0-49.0); Mean Cell Volume 97.9 fL (80.0-100.0); Mean Platelet Volume 11.3 fL (7.4-10.4); Monocytes # (Auto) 0.98 K/mcL (0.10-0.90); Monocytes % (Auto) 7.9 % (1.0-12.0); Neutrophils % (Auto) 80.2 % (38.0-78.0); Platelet Count 181 K/mcL (140-440); RBC 4.24 M/mcL (4.00-5.20); Red Cell Distribution Width 11.9 % (11.5-14.5); WBC 12.5 K/mcL (4.5-11.0)
--- NOTE | 2020-05-06 07:15 | Internal Med Progress Note ---
SUBJECTIVE Subjective Patient information: Note initiated : 05/06/20 at 7:14 am Service Date, if different from initiated Date: [] Patient: Tami Bowles 79 y/o F admitted on 05/04/20 for left hip pain. Chief Complaint: [] Interval history: Ms. Bowles is a 79 year old F with a history of prior DVT/hypothyroidism who presents to the ER after she tripped on extension cord and fell sustaining injury to the left hip. She lives [address] [place] [address] with her [place], she was in her baseline state of health. She denies losing consciousness. [facility] with [facility] consistent with left hip fracture. Orthopedic was consulted and requested transfer to [facility] for operative intervention. Initial work-up was essentially unremarkable with normal labs. Her blood pressure was around 180s during and received 1 dose of labetalol. At [facility] ER patient systolics range around 150. Hospital service was consulted for admission and to facilitate surgery in a.m. Case was discussed with orthopedics Dr. Alejandro Silver. Patient be kept n.p.o. after midnight At the time of my evaluation patient is alert and oriented. She was able to answer most of the question and endorse history as above. She denies lightheadedness or dizziness. Attributes to fall to accidentally tripping on extension cord. No recent hospitalization. No history of cardiac issues. No history of CVA 05/05-patient doing well. Great surgical intervention today. Pain overnight been controlled. Stable hemodynamics and labs. Will review postop. 05/06 Patient fell she hallucinated last night. States the narcotic pain medication. Poor sleep. Otherwise no new complaints. Review of Systems: denies headache/fever/chills/nausea/vomiting/chest or abdominal pain/cough/dyspnea/diarrhea. Otherwise see above. Constitutional Vitals: Vital Signs Temp Pulse Resp BP Pulse Ox 98.4 F 61 12 116/60 95 05/06/20 03:21 05/06/20 03:21 05/06/20 03:21 05/06/20 03:21 05/06/20 03:21 Period Temp Pulse Resp BP Sys/Erynolds Pulse Ox Last 24 Hr 97 F-98.4 F 59-80 9-18 116-179/54-86 94-100 Intake and Output 01/05/06/20 05/06/20 21:59 05:59 13:59 Intake Total 1300 1236 Output Total 550 1000 Balance 750 236 Weight 74.933 kg Intake & Output: Intake & Output 05/05/20 05/06/20 05/06/20 21:59 05:59 13:59 Intake Total 1300 1236 Output Total 550 1000 Balance 750 236 Weight 74.933 kg Intake: IV 150 936 Sodium Chloride 0.9% 1,000 ml @ 936 75 mls/hr IV .[id number] [facility] Rx#: [id number] Ancef 2 gm In Dextrose 5% in 50 Water 50 ml @ 100 mls/hr IV PREOP [facility] Rx#:[id number] Oral 300 IV - Manual Only 1150 Output: Urine Catheter Amount 300 1000 Estimated Blood Loss 250 Other: Urine Appearance Clear Clear Uretheral (Comer) Clear Urine Color Straw Dark Yellow Uretheral (Comer) Bright Yellow Exam: General: Alert, Awake, No acute Distress Eyes/N/T: EOMI, Head/Neck: neck supple, CV: RRR, No murmurs, Pulm: Clear b/l, no wheezing/rhonchi/rales Abd: soft, nontender, +BS x4 Ext: no clubbing/cyanosis/edema Neuro: Alert, no focal deficits, moves all extremities, Skin: warm/dry OBJ DATA Labs CBC & Chem 7: 05/06/20 05:26 05/06/20 05:26 Labs: Abnormal Lab Results 05/06/20 05/05/20 05/04/20 05:26 05:14 19:00 WBC 12.5 H MPV 11.3 H 11.5 H Neut % (Auto) 80.2 H Lymph % (Auto) 11.4 L Lymph # (Auto) 1.42 L [place] # (Auto) 0.98 H Absolute Neutrophils 10.01 H POC PT 11.5 L Meds: Medications Acetaminophen (Tylenol) 1,000 mg PO Q8 [facility]; Protocol Last Admin: 05/06/20 04:54 Dose: Not Given Documented by: Apixaban (Eliquis) 2.5 mg PO BID [facility] Last Admin: 05/05/20 22:02 Dose: 2.5 mg Documented by: Bisacodyl (Dulcolax) 10 mg [place] Q2-3DAYS PRN PRN Reason: Constipation Docusate Sodium (Colace) 100 mg PO BID [facility] Last Admin: 05/06/20 04:43 Dose: 100 mg Documented by: Potassium Chloride 40 meq/ (Dextrose) 520 mls @ 130 mls/hr IV UD PRN PRN Reason: K+ = or < 3.5 Acetaminophen (Ofirmev) 650 mg in 65 mls @ 130 mls/hr IV Q6HP PRN; Protocol PRN Reason: Per Pain Protocol/Fever > 101 Magnesium Sulfate (Magnesium Sulfate) 2 gm in 50 mls @ 50 mls/hr IV UD PRN PRN Reason: MG = or < 1.7 Iron Carb/Multivit/[place]/Folic Acid (Multivitamin W/Minerals) 1 tab PO DAILY [facility] Last Admin: 05/05/20 11:39 Dose: Not Given Documented by: Levothyroxine Sodium (Synthroid) 75 mcg PO QAMAC [facility] Last Admin: 05/05/20 07:53 Dose: Not Given Documented by: Melatonin (Melatonin 3mg Tablet) 3 mg PO HSP PRN PRN Reason: Insomnia Last Admin: 05/05/20 22:05 Dose: 3 mg Documented by: Methocarbamol (Robaxin) 500 mg PO Q6HP PRN PRN Reason: Muscle Spasm Ondansetron HCl (Zofran Odt) 4 mg SL Q4-6HP PRN; Protocol PRN Reason: Nausea And Vomiting Ondansetron HCl (Zofran) 4 mg IV Q4-6HP PRN; Protocol PRN Reason: Nausea And Vomiting Oxycodone HCl (Roxicodone) 0 mg PO Q4HP PRN; Protocol PRN Reason: Per Pain Protocol Carica Papaya [ (Papaya Enzyme] Tab) 1 dose PO TID [facility] Last Admin: 05/05/20 22:06 Dose: Not Given Documented by: Polyethylene Glycol (Miralax) 17 gm PO DAILYP PRN PRN Reason: Constipation Potassium Chloride (Klor-Con) 40 meq PO DAILYP PRN PRN Reason: K+ < 3.5 Senna/Docusate Sodium (Senna Plus Tablet) 1 tab PO HS [facility] Last Admin: 05/06/20 04:42 Dose: 1 tab Documented by: Sodium Chloride (Saline Flush) 10 ml IV Q8 [facility] Last Admin: 05/06/20 04:53 Dose: 10 ml Documented by: A/P Narrative A/P Narrative: A: *Left hip fracture: s/p ORIF 05/05 -Currently on pain management per surgery *Preop risk evaluation-based on RCRI [place] [employer] risk stratification patient would be in the moderate to high risk category in light of her age however patient has a good functional baseline and does not have history of decompensated CHF/CVA/[place]/IDDM or renal failure. There are no modifiable risk factors and she can proceed with surgery in a.m. Surgery and anesthesia specific risks will be addressed by individual care providers. *Hypothyroidism: continue thyroxine *h/o DVT: patient takes vddm-hal-oyzcoaj medication nattokinase. Plan: -Continue pain management -Postop care/DVT prophylaxis per orthopedics -Pre-existing medical condition management on home medications -Nutrition support/discharge planning -ppx: post-op per ortho Apixaban Full code Time Spent With Patient Time: Total time spent is greater than 50% in coordination of care (as documented) at patient's floor/unit and/or counseling patient: QUALITY VTE Deep Vein Thrombosis/Pulmonary Embolism Present on Admission: No
[2020-05-06 07:28] LABS: ALT/SGPT 14 U/L (<40); AST/SGOT 26 U/L (<32); Albumin 3.6 gm/dL (3.2-5.2); Albumin/Globulin Ratio 1.2 (1.0-2.3); Alkaline Phosphatase 72 U/L (39-117); Bilirubin,Direct < 0.2 mg/dL (<0.3); Bilirubin,Total 0.4 mg/dL (0.1-1.0); Blood Urea Nitrogen 10 mg/dL (8-23); Carbon Dioxide 23 mmol/L (22-30); Chloride 104 mmol/L (96-108); Globulin 3.1 gm/dL (2.2-3.7); Glomerular Filtration Rate 81; Glucose 115 mg/dL (70-105); Lactate Dehydrogenase 186 U/L (135-225); Phosphorous 2.8 mg/dL (2.5-4.5); Triglycerides 104 mg/dL (<150); Uric Acid 5.7 mg/dL (2.5-8.0)
[2020-05-06] MEDS: APIXABAN 5 MG TABLET PO SCH ×2 (08:38→20:39)
[2020-05-06] MEDS: MULTIVIT,THER IRON,CA,FA & MIN 1 TABLET PO SCH (08:38)
--- NOTE | 2020-05-06 09:17 | Discharge Summary ---
Discharge Provider Provider Patient information: Note initiated : 05/06/20 at 9:16 am Service Date, if different from initiated Date: [] Patient: Tami Bowles 79 y/o F admitted on 05/04/20 for left hip pain. Chief Complaint: [] Date of admission: 05/04/20 21:33 Discharge date: 05/07/20 Primary care physician: Lynne Álvarez Consults: 05/04/20 Consult to Physician [CONS] Stat Comment: Consulting Provider: Papito Mcgowan Reason For Exam: Physician to Consult Consult to Physician [CONS] Stat Comment: Consulting Provider: Edelmira Silver Reason For Exam: Physician to Consult Discharge Meds Discharge Medications Home Medications Daily Probiotic (10 Strains) 1 cap PO DAILY 05/04/20 [History Confirmed 05/04/20 Last Taken 05/04/20 08:00] Kidney Bladder Herb Blend 2 cap PO TID 05/04/20 [History Confirmed 05/04/20 Last Taken 05/04/20 08:00] Nattokinase 100 mg PO DAILY 05/04/20 [History Confirmed 05/04/20 Last Taken 05/04/20 07:00] carboxymethylcellulose sodium [Refresh Tears] 1 drp OPHTHALMIC (EYE) DAILY 05/04/20 [History Confirmed 05/04/20 Last Taken 05/03/20] carica papaya [Papaya Enzyme] 1 tab PO TID 05/04/20 [History Confirmed 05/04/20 Last Taken 05/03/20] levothyroxine 75 mcg PO QDAY 05/04/20 [History Confirmed 05/04/20 Last Taken 05/04/20 07:00] herbal drugs 750 mg PO QHS 05/05/20 [History Confirmed 05/05/20 Last Taken 05/04/20] acetaminophen 650 mg PO Q6H PRN #40 cap 05/06/20 [Rx Last Taken Unknown] COURSE Hospital Course Hospital course: Interval history: Ms. Bowles is a 79 year old F with a history of prior DVT/hypothyroidism who presents to the ER after she tripped on extension cord and fell sustaining injury to the left hip. She lives [address] [place] [address] with her [place], she was in her baseline state of health. She denies losing consciousness. She was evaluated at [facility] ER with imaging consistent with left hip fracture. Orthopedic was consulted and requested transfer to [facility] for operative intervention. Initial work-up was essentially unremarkable with normal labs. Her blood pressure was around 180s during and received 1 dose of labetalol. At [facility] ER patient systolics range around 150. Hospital service was consulted for admission and to facilitate surgery in a.m. Case was discussed with orthopedics Dr. Alejandro Silver. Patient be kept n.p.o. after midnight At the time of my evaluation patient is alert and oriented. She was able to answer most of the question and endorse history as above. She denies lightheadedness or dizziness. Attributes to fall to accidentally tripping on extension cord. No recent hospitalization. No history of cardiac issues. No history of CVA 05/05-patient doing well. Great surgical intervention today. Pain overnight been controlled. Stable hemodynamics and labs. Will review postop. 05/06 Patient fell she hallucinated last night. States the narcotic pain medication. Poor sleep. Otherwise no new complaints. 05/07 Doing well. Stable for discharge. A: *Left hip fracture: s/p ORIF 05/05 *Hypothyroidism: continue thyroxine *h/o DVT: patient takes [id number] medication nattokinase. Discharge diagnosis: Left hip fracture Secondary discharge diagnosis: Hypothyroidism Time Spent with Patient Time attestation: Total time spent providing and/or coordinating discharge services: Time spent: Greater than 30 minutes EXAM Constitutional Vitals: Temp Pulse Resp BP Pulse Ox 97.3 F 71 12 174/84 96 05/06/20 07:45 05/06/20 07:45 05/06/20 07:45 05/06/20 07:45 05/06/20 07:45 Discharge Data Data Completed and Pending Labs on day of discharge: Labs from last 24 hours 05/06/20 05/06/20 05:26 05:26 WBC 12.5 H RBC 4.24 Hgb 13.7 Hct 41.5 MCV 97.9 MCH 32.3 MCHC 33.0 RDW 11.9 Plt Count 181 MPV 11.3 H Neut % (Auto) 80.2 H Lymph % (Auto) 11.4 L [place] % (Auto) 7.9 Eos % (Auto) 0.1 Baso % (Auto) 0.4 Lymph # (Auto) 1.42 L [place] # (Auto) 0.98 H Eos # (Auto) 0.01 Baso # (Auto) 0.05 Absolute Neutrophils 10.01 H Sodium 135 Potassium 4.1 Chloride 104 Carbon Dioxide 23 Anion Gap 8.0 BUN 10 Creatinine 0.7 GFR Calculation 81 Glucose 115 H Uric Acid 5.7 Calcium 9.0 Phosphorus 2.8 Magnesium 2.0 Total Bilirubin 0.4 Direct Bilirubin < 0.2 GGT 19 AST 26 ALT 14 Alkaline Phosphatase 72 Lactate Dehydrogenase 186 Total Protein 6.7 Albumin 3.6 Globulin 3.1 Albumin/Globulin Ratio 1.2 Triglycerides 104 Discharge Plan Patient/Caregiver Discharge Instructions Activity: as per physical therapy and increase activity as tolerated Diet: Regular Diet Prescriptions: New acetaminophen 325 mg capsule 650 mg PO Q6H PRN (Reason: pain) Qty: 40 RF: 0 Continued levothyroxine 75 mcg Capsule 75 mcg PO QDAY RF: 0 carica papaya [Papaya Enzyme] Tablet 1 tab PO TID RF: 0 Daily Probiotic (10 Strains) 4 billion cell Capsule 1 cap PO DAILY RF: 0 Kidney Bladder Herb Blend 2 cap PO TID RF: 0 Nattokinase 100 mg PO DAILY RF: 0 carboxymethylcellulose sodium [Refresh Tears] 0.5 % Drops 1 drp OPHTHALMIC (EYE) DAILY RF: 0 herbal drugs 750 mg PO QHS RF: 0 Follow Up Plan Follow up with: Edelmira Silver MD [Physician] - Lynne Álavrez [Primary Care Provider] - Patient Disposition: Home, Self-Care Prognosis: Fair Overall status at discharge: patient is progressing back to baseline Discharge Orders: Discharge Order (Routine); Ordered 05/07/20 Ordered By: Kushal Julian [facility] Deep Vein Thrombosis/Pulmonary Embolism Present on Admission: No
[2020-05-06] MEDS: LEVOTHYROXINE 75 MCG TABLET PO SCH (09:43)
[2020-05-06] MEDS: [UNRECOGNIZED DRUG - OTHER] PO SCH ×3 (14:18→20:43)
[2020-05-06] MEDS: MELATONIN 3 MG TABLET PO PRN (20:39)
[2020-05-06] MEDS: traMADol 50 MG TABLET PO PRN (21:26)
[2020-05-07] MEDS: traMADol 50 MG TABLET PO PRN ×2 (04:53→13:35)
[2020-05-07] MEDS: 0.9 % SODIUM CHLORIDE 10 ML SYRINGE IV SCH ×2 (05:53→13:07)
[2020-05-07] MEDS: ACETAMINOPHEN 500 MG TABLET PO SCH (05:54)
[2020-05-07 06:34] LABS: Basophils # (Auto) 0.06 K/mcL (0.00-0.20); Basophils % (Auto) 0.6 % (0.0-2.0); Eosinophils # (Auto) 0.45 K/mcL (0.00-0.70); Eosinophils % (Auto) 4.5 % (0.0-7.0); Hematocrit 38.9 % (36.0-48.0); Hemoglobin 12.7 g/dL (12.0-15.0); Lymphocytes # (Auto) 2.38 K/mcL (1.50-4.80); Mean Cell Volume 98.7 fL (80.0-100.0); Mean Corpuscular HGB Conc 32.6 g/dL (31.0-36.0); Mean Platelet Volume 11.3 fL (7.4-10.4); Monocytes # (Auto) 0.88 K/mcL (0.10-0.90); Monocytes % (Auto) 8.9 % (1.0-12.0); Platelet Count 170 K/mcL (140-440); RBC 3.94 M/mcL (4.00-5.20); WBC 9.9 K/mcL (4.5-11.0)
[2020-05-07] MEDS: LEVOTHYROXINE 75 MCG TABLET PO SCH (06:59)
[2020-05-07] MEDS: [UNRECOGNIZED DRUG - OTHER] PO SCH (08:51)
[2020-05-07] MEDS: DOCUSATE SODIUM 100 MG CAPSULE PO SCH (08:51)
[2020-05-07] MEDS: APIXABAN 5 MG TABLET PO SCH (08:59)
[2020-05-07] MEDS: MULTIVIT,THER IRON,CA,FA & MIN 1 TABLET PO SCH (08:59)
== END 2020-05-07 13:49 | disposition home or self-care (01) | DRG 482 ==
LOC: ED 18:02 → MEDSUR 21:33
PROVIDERS: ADMIT Internal Medicine; ATTEND Internal Medicine